=== PATIENT | male | born 1950 | race Caucasian/White ===

== ENCOUNTER 2023-03-03 18:01 | Outpatient (RCR) | payer OTHER, SELFPAY | END 2023-03-03 23:59 | disposition home or self-care (01) | LOC: CRHB 18:01 | PROVIDERS: ATTENDING PHYSICIAN Internal Medicine | DX: I25.10 Atherosclerotic heart disease of native coronary artery without angina pectoris (principal); Z95.1 Presence of aortocoronary bypass graft | CPT/HCPCS: G0422 ==

== ENCOUNTER → 2023-05-05 06:59 | Outpatient (REF) | payer OTHER, SELFPAY ==
[2023-05-05 08:13] LABS: ALT (SGPT) 71 U/L (0-50); AST (SGOT) 72 U/L (17-59); HDL Cholesterol 58 mg/dl; LDL Cholesterol, Calculated 71 mg/dl; Total Cholesterol 143 mg/dl (50-199); Triglyceride 72 mg/dl (10-149); Very Low Density Lipoprotein 14 mg/dl (0-30)
== END ==
LOC: REG 06:59
PROVIDERS: ATTENDING PHYSICIAN Nurse Practitioner Gerontology
DX: E78.2 Mixed hyperlipidemia (principal)
CPT/HCPCS: 36415; 80061; 84450; 84460

== ENCOUNTER 2023-05-21 22:07 | Emergency (ER) | payer OTHER, SELFPAY ==
[2023-05-21 22:09] VITALS: BP 168/101
[2023-05-21 23:00] VITALS: BP 161/85
--- NOTE | 2023-05-21 23:01 | ED.GENMED ---
History of Present Illness
General
Chief Complaint: Blood Pressure Problem
Source: patient
Exam Limitations: none
Time Seen by Provider: 05/21/23 22:43
Nursing documentation reviewed up to this point in time: agreed with
Travel History
Have you had any contact with someone who has COVID-19?: No
Do you have any symptoms of coronavirus? Fever > 100 degrees, chills, cough, shortness of breath, sore throat, loss of taste or smell, muscle aches, or headache?: No
History of Present Illness
History of Present Illness:
Patient is a 72-year-old male with history of CABG times 01 December 2022 ischemic cardiomyopathy with ejection fraction 45-50% hypertension hyperlipidemia, reflux Crohn's small bowel obstruction bilateral pleural fusions presents to the ER for
elevated blood pressure. Patient reports his blood pressure has been elevated recently in fact he saw Dr. Gil(his technician preventative medicine ) on Wednesday who increased his lisinopril from 20 mg daily to 40 mg daily. Today however his blood pressure has
been elevated throughout the entire day around 200/110. Prior to arrival he took an extra dose of lisinopril this evening and normally only takes this dose in the morning.
He denies any associated headache nausea vomiting blurry vision chest pain. He currently reports his blood pressure is now better since arriving to the ER.
Past History
Past History
ED Past Medical History: GERD, HTN, Hypercholesterolemia and Other (Gastritis)
ED Past Surgical History: Cardiac (CABG x 3 11/2022)
Social History
Tobacco: Former smoker
Alcohol: None
Personal:
Living: with family
Review of Systems
Review of Systems
Allergies reviewed?: Yes
All Other Systems: ROS reviewed and negative except as documented in HPI and ROS
Constitutional: Reports no symptoms; Denies fever, fatigue or chills
EENT: Reports no symptoms
Respiratory: Reports no symptoms; Denies trouble breathing
Cardiac: Reports no symptoms; Denies chest pain, diaphoresis, palpitations or syncope
ABD/GI: Reports no symptoms
: Reports no symptoms
Musculoskeletal: Reports no symptoms
Skin: Reports no symptoms
Neurological: Reports no symptoms
Hematologic/Lymphatic: Reports no symptoms
Psychiatric: Reports no symptoms
Phy Exam
General Physical Exam
General Presentation: no apparent distress
General age: appears stated age
General Skin: warm and dry
General Habitus: normal
General Mental: alert
General Hydration: appears well hydrated
Cardiovascular Exam
Cardiovascular Exam: regular rate/rhythm, no murmur and normal peripheral pulses
Pulmonary Exam
Pulmonary Exam: lungs clear
Neurological Exam
Neurological Exam: alert and oriented x3
Musculoskeletal Exam
Musculoskeletal Exam: full ROM
Skin Exam
Skin Exam: normal color and warm/dry
Psychiatric Exam
Psychiatric Exam: normal mood/affect
Course
Orders/Labs/Results
Orders:
Orders
05/21/23 23:06
Electrocardiogram (*1) Urgent
Reason for Study: Other
Other Reason for Exam: Respiratory Distress
EKG- Treatment ONCE
05/21/23 23:28
Complete Blood Count/With Diff Urgent
Comprehensive Metabolic Panel Urgent
Abnormal Lab Results
05/21/23
23:28
Absolute Monos (auto) 1.0 H 10^3/uL
(0.1-0.6)
Absolute Eos (auto) 1.2 H 10^3/uL
(0-0.7)
Lymphocytes % 19.4 L %
(20.5-51.1)
Monocytes % 9.5 H %
(1.7-9.3)
Eosinophils % 12.1 H %
(0-6)
Chloride 110 H mmol/L
(98-107)
Carbon Dioxide 20 L mmol/L
(22-30)
BUN 23 H mg/dl
(9-20)
Glucose 131 H mg/dl
(70-99)
AST 62 H U/L
(17-59)
ALT 73 H U/L
(0-50)
Alkaline Phosphatase 185 H U/L
(38-126)
05/21/23 23:28
05/21/23 23:28
Vital Signs
Initial and Last Documented VS:
Initial Vital Signs
Temp Pulse Resp BP Pulse Ox
98.7 F 67 16 168/101 98
05/21/23 22:09 05/21/23 22:09 05/21/23 22:09 05/21/23 22:09 05/21/23 22:09
Last Documented Vital Signs
Temp Pulse Resp BP Pulse Ox
98.7 F 67 16 161/85 98
05/21/23 22:09 05/21/23 22:09 05/21/23 22:09 05/21/23 23:00 05/21/23 23:03
MDM/Problems Addressed
Differential Diagnosis Includes:
Not limited to high blood pressure
MDM/Problems Addressed:
Patient is a 72-year-old male with history as documented including bypass surgery hypertension presented to the ER for evaluation of high blood pressure. Patient recently saw his technician preventative medicine this week who increased his lisinopril from 20 to 40 mg.
He has been watching it daily and today is specifically it was higher which caused him to come to the ER. He does admit to feeling anxious over his elevated blood pressure and monitored several times today. Prior to arrival however he did take an
extra lisinopril along with his regular nighttime medicine and blood pressure was improved on arrival. He has been asymptomatic with his blood pressure. He presents awake alert no acute distress.
He had no chest pain associated with this. He has normal kidney function no acute findings on EKG normal sodium potassium. Patient's LFTs mildly elevated with mildly elevated alk phos will outpatient follow-up with this. Though I did discuss this
with patient and his technician preventative medicine is aware of this and feels it is likely from his cholesterol medication. stable for discharge home to follow-up with cardiology.
Chronic conditions affecting care:
cabg , cad, htn
*Pulse Oximetry
Patient hypoxic: no
*EKG
Interpreted by ED Provider?: Yes
Interpretation: normal
Heart Rate: 61
Rate: normal
Rhythm: sinus
Ischemia: non-specific ST changes
*Critical Care Note
Total Time (30-74mins, 75-104mins- exclusive of procedures): Not Applicable
ED Attending Note
-
Portions of this chart may have been created with voice recognition software.� Occasional wrong word or��sound alike� substitutions may have occurred due to the inherent limitations of voice recognition software.
Discharge Plan
Departure
Patient Disposition: Home (Routine Discharge)
Date of Disposition: 05/22/23
Time of Disposition: 00:24
Patient with high blood pressure during this ER visit?: Yes
Condition: Fair
Covid-19: Not Applicable
Discharge Problem:
Elevated blood pressure reading
Instructions: High Blood Pressure (DC), BLOOD PRESSURE
Prescriptions:
No Action
cyanocobalamin (vitamin B-12) 1,000 MCG tablet
1,000 mcg PO DAILY
ascorbic acid (vitamin C) [Vitamin C] 500 MG tablet
500 mg PO BID
coenzyme Q10 [Co Q-10] 200 MG capsule
200 mg PO DAILY
multivitamin with folic acid [Tab-A-Leigh Ann] 1 TABLET tablet
1 tab PO DAILY
cholecalciferol (vitamin D3) 125 MCG tablet,disintegrating
5,000 unit PO DAILY
melatonin 3 MG tablet
3 - 6 mg PO HS
Rx Instructions:
Patient reports that he does not take this medication anymore
Cbd Oil
1 dropperett PO PRN PRN (Reason: sleep)
magnesium 100 mg Capsule
100 mg PO HS
loperamide 2 mg Capsule
2 mg PO BID
atorvastatin 80 mg Tablet
80 mg PO QPM Qty: 90 2RF
acetaminophen 325 mg Tablet
650 mg PO Q6HPRN PRN (Reason: mild pain,headache) Qty: 0 0RF
metoprolol succinate 50 mg Tablet Extended Release 24 Hr
50 mg PO BID Qty: 90 2RF
clopidogrel 75 mg Tablet
75 mg PO DAILY Qty: 90 1RF
aspirin 81 mg Tablet,Chewable
81 mg PO DAILY Qty: 90 2RF
lisinopril 5 mg Tablet
5 mg PO DAILY Qty: 90 1RF
oxycodone 5 mg Tablet
5 mg PO Q6HPRN PRN (Reason: severe pain) Qty: 20 0RF
pantoprazole 40 mg tablet,delayed release (DR/EC)
40 mg PO DAILY Qty: 30 0RF
Referrals:
Dileep Gil MD [Active] -
NONE,* [Family Provider] -
Activity Restrictions/Additional Instructions:
Continue to take your blood pressure medication as previously prescribed and follow-up with cardiology, speak with them next week. Return if any worsening of symptoms if chest pain shortness of breath headache blurred vision or any further concerns.
Interventions
Interventions:
*Risk Screen - Suicide Last Done: 05/21/23 22:09
*General Assessment Last Done: 05/21/23 22:09
*Neglect/Abuse Screening Last Done: 05/21/23 22:09
ED- Fall Risk Assessment Last Done: 05/21/23 23:05
ED- Cardiac Assessment Last Done: 05/21/23 23:03
ED- Neurological Assessment Last Done: 05/21/23 23:03
ED- Pulmonary Assessment Last Done: 05/21/23 23:03
[2023-05-21 23:30] VITALS: BP 137/74
[2023-05-21 23:36] LABS: % Basophils 0.7 % (0-2); % Eosinophils 12.1 % (0-6); % Immature Granulocytes 0.4 % (0-0.5); % Lymphocytes 19.4 % (20.5-51.1); % Monocytes 9.5 % (1.7-9.3); % Neutrophils 57.9 % (42.2-75.2); Absolute Basophils 0.1 10^3/uL (0-0.2); Absolute Eosinophils 1.2 10^3/uL (0-0.7); Absolute Neutrophils 5.9 10^3/uL (1.4-6.5); Hematocrit 41.2 % (39.0-52.0); Hemoglobin 14.2 g/dL (13.0-18.0); Mean Corp Hgb Conc. 34.5 g/dL (33.0-37.0); Mean Corpuscular Hgb 29.4 pg (27.0-31.0); Mean Corpuscular Volume 85.3 fL (80.0-94.0); Mean Platelet Volume 10.1 fL (7.4-10.4); Nucleated Red Blood Cells % 0 % (-); Platelet Count 202 10^3/uL (130-400); Red Blood Cell Count 4.83 10^6/uL (4.70-6.10); Red Cell Dist. Width 13.9 % (11.5-14.5); White Blood Cell Count 10.1 10^3/uL (4.8-10.8)
[2023-05-21 23:51] LABS: ALT (SGPT) 73 U/L (0-50); AST (SGOT) 62 U/L (17-59); Alkaline Phosphatase 185 U/L (38-126); Blood Urea Nitrogen 23 mg/dl (9-20); Calcium 9.1 mg/dl (8.4-10.2); Carbon Dioxide 20 mmol/L (22-30); Chloride 110 mmol/L (98-107); Glucose 131 mg/dl (70-99); Potassium 3.7 mmol/L (3.5-5.1); Sodium 138 mmol/L (135-145); Total Bilirubin 0.6 mg/dl (0.2-1.3); Total Protein 6.4 g/dl (6.3-8.2); eGFR > 60.00
[2023-05-22 00:15] VITALS: BP 129/46
[2023-05-22 00:21] VITALS: BP 143/74
== END 2023-05-22 00:45 | disposition home or self-care (01) ==
LOC: EMR 22:07
PROVIDERS: Nurse Practitioner; EMERGENCY PHYSICIAN Student in an Organized Health Care Education/Training Program
DX: R03.0 Elevated blood-pressure reading, without diagnosis of hypertension (principal); I25.5 Ischemic cardiomyopathy; I10 Essential (primary) hypertension; E78.00 Pure hypercholesterolemia, unspecified; I25.10 Atherosclerotic heart disease of native coronary artery without angina pectoris; K21.9 Gastro-esophageal reflux disease without esophagitis; Z79.899 Other long term (current) drug therapy; Z87.19 Personal history of other diseases of the digestive system; Z87.891 Personal history of nicotine dependence; Z95.1 Presence of aortocoronary bypass graft
CPT/HCPCS: 99283; 80053; 85025; 93005

== ENCOUNTER → 2023-10-07 06:52 | Outpatient (REF) | payer OTHER, SELFPAY ==
[2023-10-07 08:17] LABS: ALT (SGPT) 23 U/L (0-50); AST (SGOT) 32 U/L (17-59); HDL Cholesterol 49 mg/dl; LDL Cholesterol, Calculated 38 mg/dl; Total Cholesterol 112 mg/dl (50-199); Triglyceride 126 mg/dl (10-149); Very Low Density Lipoprotein 25 mg/dl (0-30)
== END ==
LOC: REG 06:52
PROVIDERS: ATTENDING PHYSICIAN Nurse Practitioner Gerontology
DX: E78.2 Mixed hyperlipidemia (principal)
CPT/HCPCS: 36415; 80061; 84450; 84460

== ENCOUNTER → 2023-12-15 08:27 | Outpatient (REF) | payer OTHER, SELFPAY ==
[2023-12-15 10:25] LABS: ALT (SGPT) 26 U/L (0-50); AST (SGOT) 34 U/L (17-59); HDL Cholesterol 57 mg/dl; LDL Cholesterol, Calculated 45 mg/dl; Total Cholesterol 122 mg/dl (50-199); Triglyceride 104 mg/dl (10-149); Very Low Density Lipoprotein 20 mg/dl (0-30)
== END ==
LOC: REG 08:27
PROVIDERS: ATTENDING PHYSICIAN Internal Medicine; FAMILY PHYSICIAN Student in an Organized Health Care Education/Training Program
DX: E78.2 Mixed hyperlipidemia (principal); Z12.5 Encounter for screening for malignant neoplasm of prostate
CPT/HCPCS: 36415; 80061; 84450; 84460; G0103

== ENCOUNTER → 2024-02-10 09:06 | Outpatient (REF) | payer OTHER, SELFPAY | LOC: REG 09:06 | PROVIDERS: ATTENDING PHYSICIAN Internal Medicine | DX: K50.012 Crohn's disease of small intestine with intestinal obstruction (principal) | CPT/HCPCS: 83993 ==

== ENCOUNTER → 2024-02-17 10:01 | Outpatient (REF) | payer OTHER, SELFPAY | LOC: DHSLP 10:01 | PROVIDERS: ATTENDING PHYSICIAN Internal Medicine; FAMILY PHYSICIAN Student in an Organized Health Care Education/Training Program | DX: G47.33 Obstructive sleep apnea (adult) (pediatric) (principal) | CPT/HCPCS: 95800 ==

== ENCOUNTER → 2024-06-21 13:50 | Outpatient (REF) | payer OTHER, SELFPAY ==
[2024-06-21 14:37] LABS: % Basophils 0.9 % (0-2); % Eosinophils 14.1 % (0-6); % Immature Granulocytes 0.4 % (0-0.5); % Lymphocytes 23.9 % (20.5-51.1); % Monocytes 9.8 % (1.7-9.3); % Neutrophils 50.9 % (42.2-75.2); Absolute Basophils 0.1 10^3/uL (0-0.2); Absolute Eosinophils 1.4 10^3/uL (0-0.7); Absolute Lymphocytes 2.3 10^3/uL (1.2-3.4); Hematocrit 43.5 % (39.0-52.0); Hemoglobin 15.4 g/dL (13.0-18.0); Mean Corp Hgb Conc. 35.4 g/dL (33.0-37.0); Mean Corpuscular Hgb 32.1 pg (27.0-31.0); Mean Corpuscular Volume 90.6 fL (80.0-94.0); Nucleated Red Blood Cells % 0 % (-); Platelet Count 259 10^3/uL (130-400); White Blood Cell Count 9.8 10^3/uL (4.8-10.8)
[2024-06-21 15:02] LABS: Albumin 4.7 g/dl (3.5-5.0); Blood Urea Nitrogen 23 mg/dl (9-20); Calcium 9.7 mg/dl (8.4-10.2); Carbon Dioxide 24 mmol/L (22-30); Chloride 107 mmol/L (98-107); Glucose 106 mg/dl (70-99); Potassium 4.9 mmol/L (3.5-5.1); Sodium 143 mmol/L (135-145); eGFR > 60.00
[2024-06-21 15:31] LABS: PSA, Total - Screen 6.09 ng/ml (0.0-4.0)
== END ==
LOC: REG 13:50
PROVIDERS: ATTENDING PHYSICIAN Student in an Organized Health Care Education/Training Program
DX: I10 Essential (primary) hypertension (principal); K50.012 Crohn's disease of small intestine with intestinal obstruction; R97.20 Elevated prostate specific antigen [PSA]
CPT/HCPCS: 36415; 80069; 85025; G0103

== ENCOUNTER → 2024-06-22 08:04 | Outpatient (REF) | payer OTHER, SELFPAY ==
[2024-06-25 01:35] LABS: Calprotectin, Fecal 82 ug/g (<=49)
== END ==
LOC: REG 08:04
PROVIDERS: ATTENDING PHYSICIAN Internal Medicine
DX: K50.019 Crohn's disease of small intestine with unspecified complications (principal)
CPT/HCPCS: 83993

== ENCOUNTER 2024-07-10 06:24 | Day surgery (SDC) | payer OTHER, SELFPAY | END 2024-07-10 09:59 | disposition home or self-care (01) | LOC: GI 06:24 | PROVIDERS: ATTENDING PHYSICIAN Internal Medicine | DX: R13.12 Dysphagia, oropharyngeal phase (principal); K44.9 Diaphragmatic hernia without obstruction or gangrene; Q39.9 Congenital malformation of esophagus, unspecified; K31.89 Other diseases of stomach and duodenum | CPT/HCPCS: 43239; 88305; 88342 ==

== ENCOUNTER → 2024-07-25 10:10 | Outpatient (REF) | payer OTHER, SELFPAY | LOC: RAD 10:10 | PROVIDERS: ATTENDING PHYSICIAN Internal Medicine; FAMILY PHYSICIAN Student in an Organized Health Care Education/Training Program | DX: R13.12 Dysphagia, oropharyngeal phase (principal) | CPT/HCPCS: 74221 ==

== ENCOUNTER 2024-08-14 16:51 | Outpatient (RCR) | payer OTHER, SELFPAY | END 2024-08-14 23:59 | disposition home or self-care (01) | LOC: RPT 16:51 | PROVIDERS: ATTENDING PHYSICIAN Specialist; FAMILY PHYSICIAN Student in an Organized Health Care Education/Training Program | DX: M19.019 Primary osteoarthritis, unspecified shoulder (principal); M25.511 Pain in right shoulder; M75.41 Impingement syndrome of right shoulder; M75.112 Incomplete rotator cuff tear or rupture of left shoulder, not specified as traumatic; Z73.6 Limitation of activities due to disability | CPT/HCPCS: 97110; 97162 ==

== ENCOUNTER 2024-08-23 06:26 | Day surgery (SDC) | payer OTHER, SELFPAY | END 2024-08-23 13:32 | disposition home or self-care (01) | LOC: GI 06:26 | PROVIDERS: ATTENDING PHYSICIAN Internal Medicine | DX: K22.2 Esophageal obstruction (principal); K44.9 Diaphragmatic hernia without obstruction or gangrene; R13.10 Dysphagia, unspecified | CPT/HCPCS: 43248 ==

== ENCOUNTER → 2024-09-07 10:02 | Outpatient (REF) | payer OTHER, SELFPAY | LOC: RAD 10:02 | PROVIDERS: ATTENDING PHYSICIAN Internal Medicine; FAMILY PHYSICIAN Student in an Organized Health Care Education/Training Program | DX: R19.7 Diarrhea, unspecified (principal); K50.019 Crohn's disease of small intestine with unspecified complications | CPT/HCPCS: 36415; 74022 ==

== ENCOUNTER → 2024-09-08 08:04 | Outpatient (REF) | payer OTHER, SELFPAY | LOC: REG 08:04 | PROVIDERS: ATTENDING PHYSICIAN Internal Medicine; FAMILY PHYSICIAN Student in an Organized Health Care Education/Training Program | DX: R19.7 Diarrhea, unspecified (principal) | CPT/HCPCS: 87045; 87046; 87427 ==

== ENCOUNTER → 2024-09-20 08:32 | Outpatient (REF) | payer OTHER, SELFPAY | LOC: MRI 3T 08:32 | PROVIDERS: ATTENDING PHYSICIAN Student in an Organized Health Care Education/Training Program | DX: R97.20 Elevated prostate specific antigen [PSA] (principal) | CPT/HCPCS: 72197; A9575 ==

== ENCOUNTER → 2024-09-20 10:08 | Outpatient (REF) | payer OTHER, SELFPAY ==
[2024-09-20 12:23] LABS: C-Reactive Protein < 5.00 mg/L (0.0-10.00)
== END ==
LOC: REG 10:08
PROVIDERS: ATTENDING PHYSICIAN Internal Medicine; FAMILY PHYSICIAN Student in an Organized Health Care Education/Training Program
DX: K50.019 Crohn's disease of small intestine with unspecified complications (principal); R19.7 Diarrhea, unspecified
CPT/HCPCS: 36415; 85652; 86140

== ENCOUNTER → 2024-09-21 08:19 | Outpatient (REF) | payer OTHER, SELFPAY | LOC: REG 08:19 | PROVIDERS: ATTENDING PHYSICIAN Internal Medicine; FAMILY PHYSICIAN Student in an Organized Health Care Education/Training Program | DX: R19.7 Diarrhea, unspecified (principal); K50.019 Crohn's disease of small intestine with unspecified complications | CPT/HCPCS: 83993; 87045; 87046; 87324; 87328; 87329; 87427; 87449 ==

== ENCOUNTER → 2024-10-11 14:29 | Outpatient (REF) | payer OTHER, SELFPAY ==
[2024-10-11 15:52] LABS: Blood Urea Nitrogen 19 mg/dl (9-20); Calcium 9.5 mg/dl (8.4-10.2); Carbon Dioxide 23 mmol/L (22-30); Chloride 110 mmol/L (98-107); Glucose 102 mg/dl (70-99); Potassium 4.6 mmol/L (3.5-5.1); Sodium 140 mmol/L (135-145); eGFR 56.93
== END ==
LOC: REG 14:29
PROVIDERS: ATTENDING PHYSICIAN Internal Medicine; FAMILY PHYSICIAN Student in an Organized Health Care Education/Training Program
DX: K50.019 Crohn's disease of small intestine with unspecified complications (principal); R19.7 Diarrhea, unspecified
CPT/HCPCS: 36415; 80048

== ENCOUNTER → 2024-10-19 09:51 | Outpatient (REF) | payer OTHER, SELFPAY | LOC: RAD 09:51 | PROVIDERS: ATTENDING PHYSICIAN Internal Medicine; FAMILY PHYSICIAN Student in an Organized Health Care Education/Training Program | DX: K50.012 Crohn's disease of small intestine with intestinal obstruction (principal); R19.7 Diarrhea, unspecified | CPT/HCPCS: 74177; Q9967 ==

== ENCOUNTER → 2025-01-10 11:17 | Outpatient (REF) | payer OTHER, SELFPAY ==
[2025-01-10 13:07] LABS: PSA, Total - Diagnostic 7.57 ng/ml (0.0-4.0)
== END ==
LOC: REG 11:17
PROVIDERS: ATTENDING PHYSICIAN Radiology Radiation Oncology; FAMILY PHYSICIAN Student in an Organized Health Care Education/Training Program
DX: C61 Malignant neoplasm of prostate (principal)
CPT/HCPCS: 36415; 84153

== ENCOUNTER → 2025-01-24 11:45 | Outpatient (REF) | payer OTHER, SELFPAY ==
[2025-01-24 13:01] LABS: HDL Cholesterol 72 mg/dl; LDL Cholesterol, Calculated 27 mg/dl; Very Low Density Lipoprotein 21 mg/dl (0-30)
== END ==
LOC: REG 11:45
PROVIDERS: ATTENDING PHYSICIAN Internal Medicine; FAMILY PHYSICIAN Student in an Organized Health Care Education/Training Program
DX: I25.810 Atherosclerosis of coronary artery bypass graft(s) without angina pectoris (principal)
CPT/HCPCS: 36415; 80061

== ENCOUNTER → 2025-02-15 13:29 | Outpatient (REF) | payer OTHER, SELFPAY | LOC: RCS 13:29 | PROVIDERS: ATTENDING PHYSICIAN Internal Medicine; FAMILY PHYSICIAN Student in an Organized Health Care Education/Training Program | DX: I25.810 Atherosclerosis of coronary artery bypass graft(s) without angina pectoris (principal); R09.89 Other specified symptoms and signs involving the circulatory and respiratory systems; E78.2 Mixed hyperlipidemia; I77.810 Thoracic aortic ectasia | CPT/HCPCS: 93306 ==